=== PATIENT | male | born 1950 | race Caucasian/White ===

== ENCOUNTER 2017-08-07 06:14 | Day surgery (SDC) | payer MEDICARE ==
[2017-08-06 15:47] VITALS: BP 141/75
[~2017-08-07] VITALS: Ht 180.3 cm; Wt 102.5 kg
[2017-08-07] VITALS (14 sets, daily range): BP systolic 104–125; BP diastolic 62–81
[~2017-08-07 06:14] MED LIST: ASPI-555 PO; ATOR40TA71 PO; ISOS30TA6 PO; METO-408 PO; PANT40TA25 PO; SERT100T12 PO; ZOLP10TA6 PO
[2017-08-07] MEDS ORDERED: LACTATED RINGERS 1000ML 1,000 ML IV ONE (06:57)
[2017-08-07] MEDS: CLINDAMYCIN 900 MG/D5% WATER 50 ML IV SCH ×2 (07:19→09:15)
[2017-08-07] MEDS ORDERED: CLINDAMYCIN PHOSPHATE 150 MG/ML 6ML VIAL ONE (07:55)
[2017-08-07] MEDS ORDERED: MIDAZOLAM HCL 1 MG/ML 2ML VIAL ONE (09:15)
[2017-08-07] MEDS ORDERED: LIDOCAINE PF 2% 5ML ABBOJECT ONE (09:15)
[2017-08-07] MEDS ORDERED: DEXAMETHASONE SOD PHOSPHATE 10MG/ML 1ML VIAL ONE (09:15)
[2017-08-07] MEDS ORDERED: PROPOFOL 10 MG/ML 20ML VIAL IV ONE (09:15)
[2017-08-07] MEDS ORDERED: GLYCOPYRROLATE 0.2 MG/ML 5 ML VIAL ONE (09:15)
[2017-08-07] MEDS ORDERED: FENTANYL CITRATE PF 50 MCG/1 ML 5ML AMP IV ONE (09:20)
[2017-08-07] MEDS ORDERED: MEPERIDINE-PF 25 MG/ML SYG ONE (10:49)
[2017-08-07] MEDS ORDERED: ROPIVACAINE 0.5% 5MG/ML 30ML IJ ONE (12:04)
== END 2017-08-07 12:00 | disposition home or self-care (01) ==
LOC: DAH 06:14
PROVIDERS: ATTEND Orthopaedic Surgery
DX: T84.093A Other mechanical complication of internal left knee prosthesis, initial encounter (principal); Z68.31 Body mass index [BMI] 31.0-31.9, adult; I10 Essential (primary) hypertension; D64.9 Anemia, unspecified; E78.5 Hyperlipidemia, unspecified; K27.9 Peptic ulcer, site unspecified, unspecified as acute or chronic, without hemorrhage or perforation; E29.1 Testicular hypofunction; F32.9 Major depressive disorder, single episode, unspecified; G47.00 Insomnia, unspecified; I25.110 Atherosclerotic heart disease of native coronary artery with unstable angina pectoris; F41.9 Anxiety disorder, unspecified; I21.3 ST elevation (STEMI) myocardial infarction of unspecified site; K21.9 Gastro-esophageal reflux disease without esophagitis; J18.9 Pneumonia, unspecified organism; C44.319 Basal cell carcinoma of skin of other parts of face
CPT/HCPCS: 27310; A4649; A4930; A6223; J1100; J2001; J2175; J2250; J2704; J2795; J3010; J3490 ×2; J7120